=== PATIENT | female | born 1990 | race Two or more races ===

== ENCOUNTER 2020-10-03 15:23 | Observation (INO) | payer OTHER | END 2020-10-04 03:07 | disposition home or self-care (01) | LOC: LDRP 15:23 | PROVIDERS: ADMIT Obstetrics & Gynecology; ATTEND Obstetrics & Gynecology | DX: Z34.83 Encounter for supervision of other normal pregnancy, third trimester (principal); Z3A.34 34 weeks gestation of pregnancy; Z87.891 Personal history of nicotine dependence; W19.XXXA Unspecified fall, initial encounter; Y93.89 Activity, other specified; Y92.89 Other specified places as the place of occurrence of the external cause | CPT/HCPCS: 59025; 76815; 81002; G0378 ==